=== PATIENT | female | born 1995 | race Caucasian/White ===

== ENCOUNTER 2016-08-25 05:08 | Emergency (ER) | payer SELFPAY ==
[~2016-08-25] VITALS: Ht 167.6 cm; Wt 55.0 kg
[2016-08-25 05:11] VITALS: BP 128/80; PULSE 83; RESP 16; TEMP 97.7; O2SAT 100
[2016-08-25] MEDS ORDERED: SODIUM CHLOR 0.9% 1000 ML INJ 1,000 ML IV SCH (05:25)
--- NOTE | 2016-08-25 05:25 | PD ---
HPI Chief Complaint: Abdominal Pain Time Seen by Provider: 05:23 Travel History International Travel<30 days: No Contact w/Intl Traveler<30days: No Traveled to known affect area: No History of Present Illness HPI C/O ABD PAIN, CRAMPY, NONRAD, 8/10, OVER LOWER QUADRANTS ONGOING SINCE 1800 NOT IMPROVING. PFSH Social History Tobacco Use: No Allergies-Medications (Allergen,Severity, Reaction): Coded Allergies: No Known Allergies (Unverified , 08/25/16) Reported Meds & Prescriptions Reported Meds & Active Scripts Active Zofran Odt (Ondansetron Odt) 4 Mg Tab 4 Mg SL Q6HR PRN Lortab (Hydrocodone-Acetaminophen) 7.5-325 Mg Tab 1 Tab PO Q6H PRN Flagyl (Metronidazole) 500 Mg Tab 500 Mg PO TID Ciprofloxacin (Ciprofloxacin HCl) 500 Mg Tab 500 Mg PO BID Review of Systems Except as stated in HPI: all other systems reviewed are Neg Gastrointestinal: Positive: Nausea, Abdominal Pain Physical Exam Narrative GENERAL: SKIN: Warm and dry. HEAD: Atraumatic. Normocephalic. EYES: Pupils equal and round. No scleral icterus. No injection or drainage. ENT: No nasal bleeding or discharge. Mucous membranes pink and moist. NECK: Trachea midline. No JVD. CARDIOVASCULAR: Regular rate and rhythm. RESPIRATORY: No accessory muscle use. Clear to auscultation. Breath sounds equal bilaterally. GASTROINTESTINAL: Abdomen soft, TTP OVER RLQ, nondistended. MUSCULOSKELETAL: Extremities without clubbing, cyanosis, or edema. No obvious deformities. NEUROLOGICAL: Awake and alert. No obvious cranial nerve deficits. Motor grossly within normal limits. Five out of 5 muscle strength in the arms and legs. Normal speech. PSYCHIATRIC: Appropriate mood and affect; insight and judgment normal. Data Data Last Documented VS Vital Signs Date Time Temp Pulse Resp B/P Pulse Ox O2 Delivery O2 Flow Rate FiO2 08/25/16 06:26 56 18 101/63 100 Room Air 08/25/16 05:11 97.7 Orders Complete Blood Count With Diff (08/25/16 05:25) Comprehensive Metabolic Panel (08/25/16 05:25) Lipase (08/25/16 05:25) Iv Access Insert/Monitor (08/25/16 05:25) Ecg Monitoring (08/25/16 05:25) Oximetry (08/25/16 05:25) NPO (08/25/16 05:25) Morphine Inj (Morphine Inj) (08/25/16 05:30) Ondansetron Inj (Zofran Inj) (08/25/16 05:30) Sodium Chlor 0.9% 1000 Ml Inj (Ns 1000 M (08/25/16 05:25) Sodium Chloride 0.9% Flush (Ns Flush) (08/25/16 05:30) Ed Urine Pregnancytest Poc (08/25/16 05:25) Ct Abd/Pel W Iv Contrast(Rout) (08/25/16 06:05) Iohexol 350 Inj (Omnipaque 350 Inj) (08/25/16 06:36) Labs Laboratory Tests Test 08/25/16 05:30 White Blood Count 8.9 TH/MM3 Red Blood Count 4.86 MIL/MM3 Hemoglobin 14.0 GM/DL Hematocrit 40.1 % Mean Corpuscular Volume 82.4 FL Mean Corpuscular Hemoglobin 28.7 PG Mean Corpuscular Hemoglobin 34.9 % Concent Red Cell Distribution Width 13.0 % Platelet Count 206 TH/MM3 Mean Platelet Volume 9.9 FL Neutrophils (%) (Auto) 81.5 % Lymphocytes (%) (Auto) 14.3 % Monocytes (%) (Auto) 3.5 % Eosinophils (%) (Auto) 0.4 % Basophils (%) (Auto) 0.3 % Neutrophils # (Auto) 7.3 TH/MM3 Lymphocytes # (Auto) 1.3 TH/MM3 Monocytes # (Auto) 0.3 TH/MM3 Eosinophils # (Auto) 0.0 TH/MM3 Basophils # (Auto) 0.0 TH/MM3 CBC Comment DIFF FINAL Differential Comment Sodium Level 137 MEQ/L Potassium Level 3.6 MEQ/L Chloride Level 103 MEQ/L Carbon Dioxide Level 24.4 MEQ/L Anion Gap 10 MEQ/L Blood Urea Nitrogen 14 MG/DL Creatinine 0.62 MG/DL Estimat Glomerular Filtration 120 ML/MIN Rate Random Glucose 110 MG/DL Calcium Level 9.7 MG/DL Total Bilirubin 0.6 MG/DL Aspartate Amino Transf 17 U/L (AST/SGOT) Alanine Aminotransferase 21 U/L (ALT/SGPT) Alkaline Phosphatase 89 U/L Total Protein 8.3 GM/DL Albumin 4.5 GM/DL Lipase 91 U/L [facility] Medical Decision Making Medical Screen Exam Complete: Yes Emergency Medical Condition: Yes Medical Record Reviewed: Yes Differential Diagnosis PREG V NONPREG RELATED, V UTI V APPY V ENTERITIS Narrative Course PATIENT IS MORE COMFORTABLE CT IS NEG FOR APPY AND NOTED GI CHANGES C/W ENTERITIS Diagnosis Primary Impression: ENTERITIS Patient Instructions: Enteritis (ED), General Instructions Med/Other Pt SpecificInfo: Prescription(s) given Scripts Ondansetron Odt (Zofran Odt)4 Mg Tab4 Mg SL Q6HR PRN (Nausea/Vomiting) #12 TAB Prov:Cristian Hernández MD 08/25/16 Hydrocodone-Acetaminophen (Lortab)7.5-325 Mg Tab1 Tab PO Q6H PRN (PAIN) #20 TAB Prov:Cristian Hernández MD 08/25/16 Metronidazole (Flagyl)500 Mg [id number] Mg PO TID #21 TAB Prov:Cristian Hernández MD 08/25/16 Ciprofloxacin 500 Mg Ehz254 Mg PO BID #14 TAB Prov:Cristian Hernández MD 08/25/16 Disposition: 01 DISCHARGE HOME Condition: Stable Cristian Hernández MD Aug 25, 2016 05:25
[2016-08-25] MEDS ORDERED: MORPHINE SULFATE 4 MG/ML INJ IV PUSH ONE (05:30)
[2016-08-25] MEDS ORDERED: ONDANSETRON HCL 4 MG/2 ML VIAL IVP ONE (05:30)
[2016-08-25] MEDS ORDERED: SODIUM CHLORIDE 0.9% FLUSH 10 ML FLUSH IV FLUSH PRN (05:30)
[2016-08-25 05:55] VITALS: BP 121/75; PULSE 60; RESP 18; O2SAT 97
[2016-08-25 06:05] LABS: AUTOMATED NEUTROPHIL # 7.3 TH/MM3 (1.8-7.7); BASOPHIL % 0.3 % (0.0-2.0); EOSINOPHIL % 0.4 % (0.0-4.0); HEMATOCRIT 40.1 % (35.0-46.0); HEMO FLAGS DIFF FINAL; LYMPH % 14.3 % (9.0-44.0); LYMPHOCYTE # 1.3 TH/MM3 (1.0-4.8); MEAN CELL VOLUME 82.4 FL (80.0-100.0); MEAN CORPUSCULAR HEMOGLOBIN 28.7 PG (27.0-34.0); MEAN CORPUSCULAR HGB CONC 34.9 % (32.0-36.0); MONO % 3.5 % (0.0-8.0); NEUT % 81.5 % (16.0-70.0); PLATELET COUNT 206 TH/MM3 (150-450); RED BLOOD COUNT 4.86 MIL/MM3 (4.00-5.30); WHITE BLOOD COUNT 8.9 TH/MM3 (4.0-11.0)
[2016-08-25 06:26] VITALS: BP 101/63; PULSE 56; RESP 18; O2SAT 100
[2016-08-25] MEDS ORDERED: IOHEXOL 350 MG/ML 10 ML VIAL (for RAD DIAG) IV ONE (06:36)
[2016-08-25 06:40] LABS: ANION GAP 10 MEQ/L (5-15); AST (GOT) 17 U/L (15-37); BICARBONATE 24.4 MEQ/L (21.0-32.0); BLOOD UREA NITROGEN 14 MG/DL (7-18); CHLORIDE 103 MEQ/L (98-107); GLOMERULAR FILTRATION RATE 120 ML/MIN (>89); POTASSIUM 3.6 MEQ/L (3.5-5.1); SODIUM (NA) 137 MEQ/L (136-145)
[2016-08-25 06:41] LABS: ALT (GPT) 21 U/L (10-53)
[2016-08-25 06:43] LABS: ALKALINE PHOSPHATASE 89 U/L (45-117); TOTAL BILIRUBIN ADULT 0.6 MG/DL (0.2-1.0)
--- NOTE | 2016-08-25 06:48 | RADRPT ---
EXAM DATE/TIME: 08/25/2016 06:35 [place] COMPARISON: No previous studies available for comparison. INDICATIONS : Lower quadrant abdominal pain with nausea and vomiting. IV CONTRAST: 97 cc Omnipaque 350 (iohexol) IV ORAL CONTRAST: No oral contrast ingested. RADIATION DOSE: 4.76 CTDIvol (mGy) MEDICAL HISTORY : None SURGICAL HISTORY : None. ENCOUNTER: Initial ACUITY: 1 day PAIN SCALE: 5/10 LOCATION: Bilateral lower quadrant TECHNIQUE: Volumetric scanning of the abdomen and pelvis was performed. Using automated exposure control and ad justment of the mA and/or kV according to patient size, radiation dose was kept as low as reasonably achievable to obtain optimal diagnostic quality images. DICOM format image data is available electro nically for review and comparison. FINDINGS: LOWER LUNGS: The visualized lower lungs are clear. LIVER: Homogeneous density. There is no dilation of the biliary tree. No calcified gallstones. Benign low- density adjacent to the falciform ligament. Minimal fluid adjacent to liver. SPLEEN: Slightly enlarged measuring 13.2 cm without lesion. PANCREAS: Within normal limits. KIDNEYS: Normal in size and shape. There is no mass, stone or hydronephrosis. ADRENAL GLANDS: Within normal limits. VASCULAR: There is no aortic aneurysm. BOWEL/MESENTERY: Multiple fluid filled mildly prominent small bowel loops. There is no free intraperitoneal air . Lexa endix is normal. ABDOMINAL WALL: Within normal limits. RETROPERITONEUM: There is no lymphadenopathy. BLADDER: No wall thickening or mass. REPRODUCTIVE: Within normal limits. INGUINAL: There is no lymphadenopathy or hernia. MUSCULOSKELETAL: Within normal limits for patient age. CONCLUSION: 1. Minimal free fluid adjacent to the liver. 2. Mildly prominent fluid filled small bowel loops could be gastroenteritis versus early obstruction. 3. Normal appendix. Jg Santoyo MD on August 25, 2016 at 6:43 Board Certified Radiologist. This report was verified electronically.
[2016-08-25] MEDS ORDERED: CIPR500T2 PO (07:10)
[2016-08-25] MEDS ORDERED: ZOFR4TAB3 SL (07:10)
[2016-08-25] MEDS ORDERED: METR-1 PO (07:10)
[2016-08-25] MEDS ORDERED: HYDR-3534 PO (07:10)
== END 2016-08-25 07:32 | disposition home or self-care (01) ==
LOC: NEPC 05:08
DX: K52.89 Other specified noninfective gastroenteritis and colitis (principal); Z79.899 Other long term (current) drug therapy
CPT/HCPCS: 74177; 80053; 83690; 84703; 85025; 96374; 96375; 99285; J2270; J2405; J7030; Q9967